=== PATIENT | female | born 1970 | race Caucasian/White ===

== ENCOUNTER → 2016-11-24 | Outpatient (CLI) | payer OTHER ==
--- NOTE | 2016-12-04 11:11 | MM ---
Reason for exam: screening (asymptomatic). Last mammogram was performed 7 years and 9 months ago. History: Patient has history of other cancer at age 44. Physical Findings: A clinical breast exam by your physician is recommended on an annual basis and results should be correlated with mammographic findings. MG Screening Mammo w CAD Bilateral CC and MLO view(s) were taken. Prior study comparison: March 04, 2009, mammogram, performed at [facility]. The breast tissue is heterogeneously dense. This may lower the sensitivity of mammography. Focal asymmetry central upper left breast. This finding is changed when compared with previous exams. ASSESSMENT: Incomplete: need additional imaging evaluation, BI-RAD 0 RECOMMENDATION: Special view mammogram of the left breast. [facility] will attempt to contact patient to return for supplemental views.
== END | disposition home or self-care (01) ==
LOC: RADMAMWWP 13:03
PROVIDERS: ATTEND Family Medicine
DX: Z12.31 Encounter for screening mammogram for malignant neoplasm of breast (principal)

== ENCOUNTER → 2016-12-22 | Outpatient (CLI) | payer OTHER ==
--- NOTE | 2016-12-25 09:45 | MM ---
Reason for exam: additional evaluation requested from abnormal screening. Last mammogram was performed 1 month ago. History: Patient has history of other cancer at age 44. Physical Findings: Nurse did not find any significant physical abnormalities on exam. MG Work Up Mamm w CAD LT CC, MLO, ML, spot compression CC, and spot compression MLO view(s) were taken of the left breast. Prior study comparison: November 24, 2016, bilateral MG screening mammo w CAD. March 04, 2009, mammogram, performed at [facility]. The breast tissue is heterogeneously dense. This may lower the sensitivity of mammography. There is no discrete abnormality. The questioned asymmetric densities disperse on additional views. These results were verbally communicated with the patient and result sheet given to the patient on 12/22/16. ASSESSMENT: Negative, BI-RAD 1 RECOMMENDATION: Routine screening mammogram of both breasts in 1 year.
== END ==
LOC: RADMAMWWP 15:04
PROVIDERS: ATTEND Family Medicine
DX: R92.8 Other abnormal and inconclusive findings on diagnostic imaging of breast (principal)

== ENCOUNTER → 2017-01-01 | Outpatient (CLI) | payer OTHER ==
--- NOTE | 2017-01-01 16:25 | MR ---
MR lspine/sacrum wo con CLINICAL HISTORY: Low back pain. Multiplanar, multiecho imaging of the lumbar spine and sacrum was obtained without contrast on a 3 Te sla magnet. REFERENCE:None. FINDINGS: Paraspinal soft tissues are normal. Vertebral body height and alignment are maintained. There is no spondylolysis or spondylolisthesis. Cord signal is normal. The conus ends normally at the level of the mid body of L1. At T12-L1 and L1-2, no definite abnormality is seen. At L2-3, there is minor capsulitis within the facets. At L3-4, there is mild hypertrophic change and capsulitis within the facets. At L4-5, there is disc space loss and disc desiccation. There is a diffuse disc displacement. The int ervertebral foramina appear well maintained. There are hypertrophic changes and capsulitis within the facets. At L5-S1, there is mild hypertrophic changes in the facets. There is a mild kyphosis at the S1-2 level. The remainder of the sacral elements and the first 2 cocc ygeal segments are fused. Uterus is mildly heterogenous and retroflexed. The bladder is unremarkable. IMPRESSION: 1. MILD DEGENERATIVE DISC DISEASE, L4-5. 2. DIFFUSE FACET ARTHROPATHY. 3. 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 4. MILD KYPHOSIS AT THE S1-S2 LEVEL.
== END | disposition home or self-care (01) ==
LOC: RADMRIMAIN 15:11
PROVIDERS: ATTEND Nurse Practitioner Family
DX: M51.36 Other intervertebral disc degeneration, lumbar region (principal); M46.96 Unspecified inflammatory spondylopathy, lumbar region; Q74.2 Other congenital malformations of lower limb(s), including pelvic girdle
CPT/HCPCS: 72148; 72195

== ENCOUNTER → 2017-09-06 | Outpatient (CLI) | payer OTHER ==
[2017-09-05 23:08] VITALS: BMI 20.2
--- NOTE | 2017-09-06 14:21 | P.CONS ---
History of Present Illness - Reason for Consult Consult date: 09/06/17 - History of Present Illness This is the initial consultation visit for this 46 years female with a chronic history of severe low back pain, the pain started more than 4 years ago , she denies any initiating event , but she reportes ,that she heavy lifting at work , constant and increases with any activity localized mostly in the low back area , fever or night sweats she denies any motor or sensory deficit, Past Medical History Past Medical History: Cancer, Musculoskeletal Disorder Additional Past Medical History / Comment(s): hx. skin cancer, back pain, back injury last spring History of Any Multi-Drug Resistant Organisms: None Reported Past Surgical History: Tonsillectomy Additional Past Surgical History / Comment(s): repair rectal prolapse, skin cancer removed face, colonoscopies Past Anesthesia/Blood Transfusion Reactions: No Reported Reaction Past Psychological History: ADD/ADHD, Anxiety Smoking Status: Current every day smoker Past Alcohol Use History: Occasional Additional Past Alcohol Use History / Comment(s): on & off 1ppd since teens Past Drug Use History: None Reported - Past Family History Father Family Medical History: Cancer Medications and Allergies Home Medications Medication Instructions Recorded Confirmed Type Dextroamphetamine/Amphetamine 15 mg PO BID 09/04/17 09/06/17 History [Adderall] Ibuprofen [Motrin] 600 mg PO Q6HR PRN 09/04/17 09/06/17 History QUEtiapine [SEROquel] 100 mg PO HS 09/04/17 09/06/17 History Venlafaxine HCl ER [Effexor Xr] 75 mg PO BID 09/04/17 09/06/17 History Allergies Allergy/AdvReac Type Severity Reaction Status Date / Time No Known Allergies Allergy Verified 09/06/17 13:35 Physical Exam Vitals: Vital Signs Temp Pulse Resp BP Pulse Ox 09/06/17 13:43 97.6 F 102 H 18 132/77 97 Intake and Output 09/05/17 09/06/17 09/06/17 22:59 06:59 14:59 Other: Weight 62.1 kg Patient Weight 09/07/17 06:59 Weight 62.1 kg Social history : smoker , occasional ETOH , occasional marijuana use Review of Systems : 1- Constitutional : no chills , no fever , no night sweats , 2- Ears : no ear discharge , no change in hearing 3-Nose, Mouth ,Throat ; no bleeding gums, no sore throat , no epistaxis , 4-Cardiovascular : Denies chest pain, , no orthopnea , no palpitation 5-Respiratory : Denies cough , no dyspnea , no hemoptysis 6-Gastrointestinal :, no change in bowel habits , no coffee- ground emesis . 7-Genitourinary : No hematuria , no discharge , no incontinence, 8-Musculoskeletal : No gait dysfunction , report low back pain , 9- Neurological : no ataxia , no tremor , no sezure , 10-Psychatric , no suicidal ideation no hallucination , ++ anexity 11- Endocrine : no cold intolerence , no polyuria , no polydypsia , 12-Hematologic : no easy bleeding , no easy brusing , 13-Allergic / immunology : no angioedema , no wheezing ,no allergic rhinitis 14-Integumentary : no brttle nails , no change hair / nails , no foot/leg ulcers . Physical Examinations : 1-Constitutional : Cooperative , not in acute distress . 2-HEENT : nech ; supple , no Lymphadenopathy , no Thyromegaly , :eyes , no icterus, no photophobia . ENT : , normal oropharynx , no Thrush 3- Respiratory : Chest clear to auscultations Bilaterally , no wheezing . 4- Cardiovascular : regular rate and rhythem , S1 , S2 , no S3 , no S4. 5- Gastrointestinal: abdomen soft no tenderness , no organomegally . 6- Genitourinary : Defferred . 7-Integumentary : No cellulitis , no ulcers , normal skin turgor , no cyanotic . 8- neurologic : Cranial nerve II to XII intact , no focal neurological deffecit 9-psychatric : alert , oriented X 3 , appropriate affect , intact judgment and insight . 10-Lymphatic : no Lymphadenopathy. 11- musculoskeltal: normal gait . Lumber spine moter stegnth lower extremities ,thigh and legs 5/5 Right side , 5/5 Left side deep tendon reflexes : normal Knee Jerk , normal ankle Jerk positive lumber facet Loading Test Range of motion of the lumbar spine Flexion 30 degrees, extension 10 degrees strait leg raising test , positive at 60 degree Fabere test negative RT and negative LT . Results Comments: Lumbar spine done at the [facility] February 2017 showed multilevel lumbar degenerative disc disease and multilevel lumbar facet arthropathy and capsulitis of the facet joint Assessment and Plan Plan: Assessment and plan= chronic low back pain secondary to lumbar degenerative disc disease , lumbar spondylosis with lumbar facet arthropathy , Medication managements= patient will be given prescriptio for 100 mg twice a day dispense 60 with 1, to review her current medication and she Motrin 600 mg 3 times a day Interventional pain management= clinically most of the pain is coming from the facetogenic component , for this reason ,patient could benefit from diagnostic medial branch block and radiofrequency ablation of the medial branch if it's positive, and benefits and alternatives discussed with the patient and she agreed with the preceding, if she had no benefit from the diagnostic medial branch block and we will do lumbar epidural steroid injections to target the discogenic component of low back pain , Time with Patient: Greater than 30
[2017-09-06 16:40] VITALS: BP 132/77; PULSE 102; RESP 18; TEMP 97.6
== END | disposition home or self-care (01) ==
LOC: PNWHC3 13:15
PROVIDERS: ATTEND Specialist
DX: M51.36 Other intervertebral disc degeneration, lumbar region (principal); M47.816 Spondylosis without myelopathy or radiculopathy, lumbar region; M46.86 Other specified inflammatory spondylopathies, lumbar region; Z79.1 Long term (current) use of non-steroidal anti-inflammatories (NSAID); Z79.899 Other long term (current) drug therapy
CPT/HCPCS: 99201

== ENCOUNTER → 2017-10-09 | Day surgery (SDC) | payer OTHER ==
[2017-10-08 09:24] VITALS: BMI 20.6
[~2017-10-09] MED LIST: LACTATED RINGERS 1,000 ML IV SCH; LIDOCAINE 1% 20 ML VIAL (10MG/ML) FOR IV START INTRADERMA ONE
[2017-10-09 09:28] VITALS: TEMP 98.3
--- NOTE | 2017-10-09 10:36 | P.PCN ---
Date of Procedure: 10/09/17 Surgeon: Ortiz Sheriff Pathology: none sent Condition: stable Disposition: PACU Description of Procedure: PREOPERATIVE DIAGNOSIS : 1- Lumbar spondylosis with Facet Arthropathy without myelopathy . 2- Lumber degenerative disc disease POSTOPERATIVE DIAGNOSIS: 1- Lumbar spondylosis with Facet Arthropathy without myelopathy . 2- Lumber degenerative disc disease PROCEDURE: Diagnostic bilateral L3 -4 , L4 -5 , and L5-S1 medial branch block under fluoroscopy ANESTHESIA: Local with 1% lidocaine; IV moderate conscious sedation with Versed 2 mg, and fentanyl 100 g . EBL: Negligible COMPLICATION: None. PROCEDURE INDICATION: Chronic low back pain secondary to Facet arthropathy unresponsive to conservative treatment. PROCEDURE DESCRIPTION: the patient was seen and identified in the preop holding area , risks and benefits and possible complications of the procedure and alternatives were discussed with the patient, and the patient agreed to proceed with the procedure and signed the consent. IV was started and vital signs monitored during the procedure and fluoroscopy was used to maximize the benefit and accuracy of the needle placement, sedation was given to decrease patient anxiety, patient was taken to the procedure room and placed in prone position vital signs monitored. The patient was seen in the preop holding area consent was obtained then she was brought into the procedure room and placed in prone position. Skin was prepped with Chloraprep and draped in a sterile manner. Lidocaine 1% was used to numb the skin up at the target points that were chosen as follows: at the L5-S1 level which corresponds to the dorsal ramus of L5 the target points were at the superior medial aspect of the sacral ala on each side of the spine on the AP view of fluoroscopy, and for theL2, L3 and L4 medial branches the target points were the connection between the transverse process and the superior to go process of L3, L4 and L5 respectively on the oblique views of fluoroscopy. I used 22-gauge 3-1/2 inch Quincke spinal needles for this procedure and after contacting bone at the target points mentioned above I injected 1 mL of a mixture of Kenalog 40 mg +5 MLS of Marcaine 0.5% PF . Patient tolerated procedure well. At the end of the procedure the needles removed and a bandage applied after the skin was cleaned the cleaning solution. patient was then taken to the recovery room in stable condition and monitored in the recovery room for 20-30 minutes and discharged home in stable condition after discharge criteria met .
[2017-10-09 10:51] VITALS: BP 102/67; PULSE 72; RESP 18
--- NOTE | 2017-10-09 11:12 | FL ---
EXAMINATION TYPE: FL guided pain mgmt statistic DATE OF EXAM: 10/09/2017 HISTORY: Pain bilateral facets 12 sec fl time used 2 images scanned into pacs
== END ==
LOC: ORPAIN 09:04
PROVIDERS: ATTEND Anesthesiology
DX: G89.29 Other chronic pain (principal); M47.816 Spondylosis without myelopathy or radiculopathy, lumbar region; M51.36 Other intervertebral disc degeneration, lumbar region
CPT/HCPCS: 81025; 64493; 64494; 64495; J2250; J3301; J3010; 99152

== ENCOUNTER 2017-12-19 08:30 | Day surgery (SDC) | payer OTHER ==
[2017-12-19 08:55] VITALS: TEMP 98.5
[2017-12-19] MEDS ORDERED: LACTATED RINGERS 1,000 ML IV ONE (09:00)
[2017-12-19] MEDS ORDERED: LACTATED RINGERS 1,000 ML IV SCH (09:30)
[2017-12-19] MEDS ORDERED: IV FLUID CONTINUATION 1,000 ML IV ONE (09:50)
[2017-12-19 09:53] VITALS: RESP 18
[2017-12-19 10:06] VITALS: BP 101/72; PULSE 85
--- NOTE | 2017-12-19 10:08 | P.PCN ---
Date of Procedure: 12/19/17 Surgeon: Douglas Kaminski Pathology: none sent Condition: stable Disposition: PACU Description of Procedure: PREOPERATIVE DIAGNOSIS: Lumbar spondylosis without myelopathy and facet arthropathy. POSTOPERATIVE DIAGNOSIS: Lumbar spondylosis without myelopathy and facet arthropathy. PROCEDURE DESCRIPTION: Patient presents for bilateral L3-L4, L4-L5 and L5-S1 diagnostic medial branch blocks under fluoroscopic guidance. The procedure is performed using fluoroscopic guidance during needle placement to assure proper position and maximize safety. ANESTHESIA: Local with 1% lidocaine; conscious sedation EBL: Minimal PROCEDURE INDICATION: Patient with lumbar facet arthropathy signs and symptoms, here for diagnostic medial branch block. Pt does not take any blood thinning medications. PROCEDURE DESCRIPTION: The patient was seen and identified in the preoperative area. Risks, benefits, complications, and alternatives were discussed with the patient (including but not limited to incomplete pain relief, bleeding, infection, nerve damage, and allergies to medications), the patient agreed to proceed with the procedure and signed the consent after all questions were answered. Patient was taken to the OR and time out was completed to verify proper patient, position, laterality of pain, and allergies. Pt was placed in the prone position and a pillow was placed under the abdomen to reduce lumbar lordosis. The lumbosacral area was prepped and draped in the usual sterile fashion. Using oblique fluoroscopy, the eye of the "Gallo dog" of right L4 vertebral body, which corresponds to the path of the medial branch originating from the level above, which is L3 in this case, was identified. Subsequently, a 22-gauge 3.5-inch spinal needle was inserted under fluoroscopic guidance toward the eye of the "Gallo dog" of the right L4 vertebral body, corresponding to the junction of the superior articular process and the transverse process of the pedicle of the same level. After needle tip confirmation on lateral view and after negative aspiration for CSF and blood and without paresthesias, 1 mL of a 6 ml solution of 0.5% preservative-free bupivacaine and 40 mg Kenalog was injected. Subsequently the needle was withdrawn intact and the same procedure was repeated for the right L4, right L5, left L3, left L4, and left L5 medial branches which together with right L3 medial branch correspond to the sensory innervation of the bilateral L3-L4, L4-L5, and L5-S1 facet joints. Needle was withdrawn intact after each injection. At the end of the procedure, the skin was cleansed and bandages were applied. COMPLICATIONS: None. DISPOSITION/PLAN: The patient taken to the recovery area after the procedure in a stable condition for observation. Patient was reexamined prior to discharge and there were no issues. Patient was discharged home, accompanied by an adult, after meeting discharged criteria. Discharge instructions were give to the patient by the staff. Patient was specifically instructed not to drive today and to rest for the rest of the day. Patient will follow up in clinic for re-eval in 4-6 weeks.
--- NOTE | 2017-12-19 10:12 | FL ---
Fluoroscopy HISTORY: Pain 10 seconds fluoroscopy time supplied to the referring clinician. 6 intraoperative C-arm images docum ent the procedure. See dictated report from anesthesia.
== END 2017-12-19 10:25 | disposition home or self-care (01) ==
LOC: ORPAIN 08:30
PROVIDERS: ATTEND Anesthesiology
DX: M47.816 Spondylosis without myelopathy or radiculopathy, lumbar region (principal); F41.9 Anxiety disorder, unspecified; F32.9 Major depressive disorder, single episode, unspecified; Z79.1 Long term (current) use of non-steroidal anti-inflammatories (NSAID); Z79.899 Other long term (current) drug therapy
CPT/HCPCS: 81025; 64493; 64494; 64495; J2250; J3301; 99152

== ENCOUNTER → 2018-01-08 | Outpatient (CLI) | payer OTHER ==
[2018-01-08 13:34] VITALS: BP 120/85; PULSE 90; RESP 18
--- NOTE | 2018-01-08 13:47 | P.PN ---
Progress Note - Text Progress Note Date: 01/08/18 Patient returns for followup for chronic back pain without significant radiation. Patient recently underwent LMBB x2, first of which gave her three weeks' relief > 70% and the second of which only gave her one week's relief > 70 % and improvement in her ability to do ADLs. Patient did also complain of some numbness in her left pinky after first procedure which has steadily improved and may have been due to positioning. Patient denies adverse drug effects from medications. Today, pt denies new-onset weakness, bowel/bladder incontinence, or any other signs or symptoms of cauda equina syndrome. There are no signs of acute intoxication, and no indications of medication diversion or overuse. In addition to above, 13-point review of systems is also negative for chest pain , shortness of breath, changes in vision, changes in hearing, new onset weakness , abdominal pain, diarrhea, extreme fatigue, malaise, fever, skin changes, homicidal or suicidal ideation, or bowel or bladder incontinence. Vital Signs: Reviewed in EMR Gen: WDWN, AAOx3, NAD HEENT: NCAT, EOMI, hearing grossly normal Pulm: resp unlabored Abd: soft, NT, ND Neck: supple, trachea midline ROM in flexion lumbar spine: reduced ROM in extension lumbar spine: reduced Lumbar paravertebral tenderness: + Facet loading: + bilateral, R > L SI joint tenderness: neg Henry's test: neg Straight leg raise: neg Imaging: Reviewed in EMR Assessment: 1. lumbar spondylosis 2. chronic pain syndrome Plan: 1. Explanation: Opioid and psychological risk scores were reviewed. Diagnoses , prognoses, and multiple treatment options including but not limited to physical therapy, interventional therapies, adjuvant medical therapies, narcotic medication therapies, and surgery were discussed with the patient and all questions were answered to the patient's satisfaction. 2. Opioid agreement: no opioids prescribed today 3. Counseling: The patient was counseled extensively on SMOKING CESSATION, BODY MASS INDEX, EXERCISE. Specifically, the patient was instructed regarding the importance of smoking cessation, weight control, and exercise in the context of both chronic pain and overall health. 4. Procedures: R lumbar RFA 5. Consultations: None 6. Investigations: UDS not done today, MAPS queried and appropriate 7. Medications: none prescribed 8. Morphine equivalents per day prescribed: zero 9. Disposition: f/u for procedure as scheduled PQRS measures: 1-Patient's medications are documented in the chart. 2-Tobacco use is positive, counseling given 3-Patient has not had a pneumococcal vaccine. 4-Advanced care planning discussed, patient unable to give. 5-Opioid contract NOT signed with the patient. 6-Pain positive, follow-up visit or procedure scheduled 7-Patient's blood pressure measured and documented, and WNL. 8-Patient's weight was measured, and body mass index within the normal limits. 9-Patient WAS NOT identified as an unhealthy alcohol user.
== END | disposition home or self-care (01) ==
LOC: PNWHC3 13:02
PROVIDERS: ATTEND Anesthesiology
DX: G89.4 Chronic pain syndrome (principal); M47.816 Spondylosis without myelopathy or radiculopathy, lumbar region; Z72.0 Tobacco use
CPT/HCPCS: 99211

== ENCOUNTER 2018-02-05 09:14 | Day surgery (SDC) | payer OTHER ==
[2018-02-04 09:28] VITALS: BMI 21.2
[2018-02-05] MEDS ORDERED: LACTATED RINGERS 1,000 ML IV ONE (10:25)
[2018-02-05] MEDS ORDERED: LIDOCAINE 1% 20 ML VIAL (10MG/ML) FOR IV START INTRADERMA ONE (10:25)
[2018-02-05 10:28] VITALS: RESP 16; TEMP 98.6
[2018-02-05] MEDS ORDERED: IV FLUID CONTINUATION 1,000 ML IV ONE (11:00)
[2018-02-05 11:18] VITALS: BP 119/78; PULSE 71
--- NOTE | 2018-02-05 11:51 | FL ---
Fluoroscopy HISTORY: Pain 12 seconds fluoroscopy time supplied to the referring clinician. 3 intraoperative C-arm images docum ent the procedure. See dictated report from anesthesia.
--- NOTE | 2018-02-05 11:54 | P.PCN ---
Date of Procedure: 02/05/18 Surgeon: Douglas Kaminski Pathology: none sent Condition: stable Disposition: PACU Description of Procedure: PREOPERATIVE DIAGNOSIS: Lumbar spondylosis without myelopathy and facet arthropathy POSTOPERATIVE DIAGNOSIS: Lumbar spondylosis without myelopathy and facet arthropathy PROCEDURES: Right Radiofrequency thermocoagulation, L3-L4, L4-L5, and L5-S1 medial branch, with fluoroscopic guidance. ANESTHESIA: 1% lidocaine plain; Conscious sedation with versed/fentanyl EBL: Minimal PROCEDURE INDICATION: The patient with low back pain secondary to lumbar arthropathy who had more than 50% relief of pain with previous diagnostic lumbar medial branch block with bupivacaine. Patient presents for RFA today; no use of blood thinners. PROCEDURE DESCRIPTION / TECHNIQUE: The patient was seen and identified in the preoperative area. Risks, benefits, complications, and alternatives were discussed with the patient (including but not limited to incomplete pain relief , bleeding, infection, nerve damage, and allergies to medications), the patient agreed to proceed with the procedure and signed the consent after all questions were answered. Patient was taken to the OR and time out was completed to verify proper patient , position, laterality of pain, and allergies. Pt was placed in the prone position. IV was started. Vital signs remained stable throughout the procedure. A pillow was placed under the patients chest to decrease lordosis. The lumbosacral area was prepped and draped in the usual sterile fashion. Vital signs were closely monitored during the procedure. Conscious sedation was used during the procedure to decrease patients anxiety. Using AP and then oblique fluoroscopy, the eye of the Gallo dog corresponding to the connection between the superior and transverse articular processes of right L3, L4, L5 and top of the sacrum were identified, marked, and localized with 1% lidocaine. Subsequently, a 20 gauge, 100-mm radiofrequency cannula with a 10-mm active tip was advanced guided by fluoroscopy to each of the eyes of the Gallo dog at the levels of all four medial branches. Each site then underwent sensory testing at 50 Hz and 0 to 1 volt and motor testing at 2 Hz and 0 to 3 volt with local stimulation, but no radicular symptoms down the legs. Thereafter all four medial branch sites underwent radiofrequency thermocoagulation at 80 degrees Celsius for 90 seconds after injecting 0.5 ml of PF lidocaine 1%. After thermocoagulation, 1 ml of the block solution containing Kenalog 40 mg and 2 mL of preservative-free normal saline was injected at all four medial branch levels after negative aspiration of CSF and blood and with no paresthesias. Cannulas were retracted while injecting lidocaine 1% until the needles were removed. At the end of the procedure, the skin was cleansed and bandages were applied. COMPLICATIONS: No acute complications. DISPOSITION / PLANS: The patient was placed in a supine position and transferred to the recovery area in a stable condition for observation and was discharged from the recovery room after meeting discharge criteria. Home discharge instructions given to the patient by the staff. The patient was reexamined prior to discharge. The patient will schedule a left lumbar RFA in 2- 4 weeks.
== END 2018-02-05 11:41 | disposition home or self-care (01) ==
LOC: ORPAIN 09:14
PROVIDERS: ATTEND Anesthesiology
DX: G89.4 Chronic pain syndrome (principal); M47.816 Spondylosis without myelopathy or radiculopathy, lumbar region; Z72.0 Tobacco use
CPT/HCPCS: 81025; 64635; 64636 ×2; J2250; J3301; J3010; 99152

== ENCOUNTER 2018-02-26 09:26 | Day surgery (SDC) | payer OTHER ==
[2018-02-25 11:49] VITALS: BMI 20.9
[~2018-02-26 09:26] MED LIST changes: -LIDOCAINE 1% 20 ML VIAL (10MG/ML) FOR IV START INTRADERMA ONE
[2018-02-26 10:17] VITALS: RESP 16; TEMP 98.9
[2018-02-26] MEDS ORDERED: LIDOCAINE 1% 20 ML VIAL (10MG/ML) FOR IV START INTRADERMA ONE (10:32)
--- NOTE | 2018-02-26 11:12 | P.PCN ---
Date of Procedure: 02/26/18 Procedure(s) Performed: PREOPERATIVE DIAGNOSIS: 1-Lumbar Spondylosis with Facet Arthropathy without myelopathy. POSTOPERATIVE DIAGNOSIS: 1- Lumbar Spondylosis with Facet Arthropathy without myelopathy. PROCEDURES : Left Radiofrequency thermocoagulation, L3-L4, L4-L5, and L5-S1 medial branch, with fluoroscopic guidance ANESTHESIA: Moderate sedation with intravenous versed 2 mg, and fentaneyl 100 mcg and local infiltration with lidocaine 1% 6 ml EBL: Minimal PROCEDURE INDICATION: The patient with low back pain secondary to lumbar facet arthropathy who had more than 50% relief of her pain with previous diagnostic lumbar medial branch block with bupivacaine. PROCEDURE DESCRIPTION / TECHNIQUE: The patient was seen and identified in the preoperative area. Risks, benefits, complications, including but not limited to risk of infection ,bleeding , allergic reactions to the medications and no complete pain releife , and alternatives were discussed with the patient, the patient agreed to proceed with the procedure and signed the consent. IV was started. Vital signs remained stable throughout the procedure. Patient was taken to the OR and time out was completed. The patient was placed in the prone position on the procedure table. The lumber area was prepped and draped in the usual sterile fashion. . Vital signs were closely monitored during the procedure .IV sedation was used during the procedure to decrease patients anxiety. Using AP and then oblique fluoroscopy, the ``eye of the Gallo dog corresponding to the connection between the superior and transverse articular processes of left L3, L4, and L5 were identified, marked, and localized with 1 % lidocaine. Subsequently, a 18 [id number] radiofrequency cannula with a 10- mm active tip was advanced guided by fluoroscopy to each of the ``eyes of the Gallo dog at left L3, L4, and L5. Each site then underwent sensory testing at 50 Hz and 0 to 1 volt and motor testing at 2.5 Hz and 0 to 3 volt with local stimulation, but no radicular symptoms down the legs. Thereafter the left L3-4, L4-5, and L5-S1 sites underwent radiofrequency thermocoagulation at 80 degrees celsius for 90 seconds after injecting 0.5 ml of PF lidocaine 1%. then After the thermocoagulation done , 1 ml of the block solution containing Kenalog 40 mg and 3 ml of marcain 0.5% was injected at the left L3-4 , L4-5 , and L5-S1, levels after negative aspiration of CSF and blood and with no paresthesias. Cannulas were retracted while injecting lidocaine 1% until the needle is out. . At the end of the procedure, the skin was cleansed and bandages were applied. COMPLICATIONS: No acute complications. DISPOSITION / PLANS: The patient was placed in a supine position and transferred to the recovery area in a stable condition for observation and was discharged from the recovery room after meeting discharge criteria. Home discharge instructions given to the patient by the staff. The patient was reexamined prior to discharge. The patient will schedule a follow up in the clinic in 2-4 weeks.
--- NOTE | 2018-02-26 11:18 | FL ---
EXAMINATION TYPE: FL guided pain mgmt statistic DATE OF EXAM: 02/26/2018 HISTORY: Pain Rad freq FB lumbar. Al-Anthony. 6 seconds of fluoro. 3 images scanned.
[2018-02-26] MEDS ORDERED: IV FLUID CONTINUATION 500 ML IV ONE (11:20)
[2018-02-26 11:25] VITALS: PULSE 74
[2018-02-26 11:44] VITALS: BP 121/76
== END 2018-02-26 11:53 | disposition home or self-care (01) ==
LOC: ORPAIN 09:26
PROVIDERS: ATTEND Specialist
DX: M47.816 Spondylosis without myelopathy or radiculopathy, lumbar region (principal); F90.9 Attention-deficit hyperactivity disorder, unspecified type; F17.200 Nicotine dependence, unspecified, uncomplicated
CPT/HCPCS: 81025; 64635; 64636; J2250; J3301; J3010; 99152

== ENCOUNTER → 2018-10-28 | Outpatient (CLI) | payer BC ==
--- NOTE | 2018-10-28 22:31 | XR ---
EXAMINATION TYPE: XR cervical spine limited DATE OF EXAM: 10/28/2018 TECHNIQUE: Frontal, lateral, and open mouth view of the cervical spine are obtained. HISTORY: M54.2 cervicalgia COMPARISON: None FINDINGS: The cervical spine is visualized in its entirety from C1 thru the inferior C7 level, it is straightened in alignment without evidence of acute fracture or dislocation. The pre-vertebral soft tissue appears within normal limits. The C1-C2 articulation is within normal limits on the open rachelle th view. There is suboptimal evaluation of C7-T1 level without dedicated swimmer's view. Mild disc sp renetta narrowing C6-C7 level is present otherwise vertebral body heights and disc space heights are main tained. Overlying soft tissue is unremarkable. IMPRESSION: As above.
--- NOTE | 2018-10-28 22:32 | XR ---
EXAMINATION TYPE: XR lumbar spine 2 or 3V DATE OF EXAM: 10/28/2018 CLINICAL HISTORY: Pain after falling injury one week ago. TECHNIQUE: Frontal and lateral images of the lumbar spine are obtained. COMPARISON: None FINDINGS: There are 5 lumbar type vertebral bodies identified. The lumbar spine shows slight levoco nvex scoliotic curvature without evidence of acute fracture or dislocation. Vertebral body heights an d disk space heights are within normal limits. Surgical clips overlie the upper sacrum and lower lumb ar spine. IMPRESSION: No acute fracture or dislocation is seen in the lumbar spine.
== END | disposition home or self-care (01) ==
LOC: RADXRMAIN 15:17
PROVIDERS: ATTEND Physician Assistant
DX: M48.02 Spinal stenosis, cervical region (principal); M54.5 Low back pain
CPT/HCPCS: 72040; 72100

== ENCOUNTER → 2020-03-16 | Outpatient (CLI) | payer OTHER | END | disposition home or self-care (01) | LOC: LABWHC1 13:14 | PROVIDERS: ATTEND Family Medicine | DX: Z11.59 Encounter for screening for other viral diseases (principal) | CPT/HCPCS: U0003; C9803 ==

== ENCOUNTER → 2020-07-16 | Outpatient (CLI) | payer OTHER ==
--- NOTE | 2020-07-16 13:33 | US ---
EXAMINATION TYPE: US pelvic complete DATE OF EXAM: 07/16/2020 COMPARISON: NONE CLINICAL HISTORY: 49-year-old female Z12.39, N94.10. Heavy bleeding. TECHNIQUE: Transvaginal (TV). FINDINGS: EXAM MEASUREMENTS: Uterus: 7.5 x 5.0 x 5.2 cm Endometrial Stripe: .9 cm Right Ovary: 3.1 x 2.1 x 2.3 cm Left Ovary: 2.4 x 2.3 x 2.2 cm 1. Uterus: Maybe retroflexed but otherwise wnl 2. Endometrium: wnl 3. Right Ovary: Cystic area seen 1.6 x 1.9 x 1.9 cm. 4. Left Ovary: wnl 5. Bilateral Adnexa: wnl 6. Posterior cul-de-sac: wnl IMPRESSION: 1. Retroflexed uterus. Endometrial stripe measuring 9 mm. 2. A 1.9 cm dominant follicle or functional cyst within the right ovary. 3. No pelvic free fluid.
--- NOTE | 2020-07-19 08:52 | MM ---
Reason for exam: screening (asymptomatic). Last mammogram was performed 3 years and 7 months ago. History: Patient has history of other cancer at age 44. Physical Findings: A clinical breast exam by your physician is recommended on an annual basis and results should be correlated with mammographic findings. MG Screening Mammo w CAD Bilateral CC and MLO view(s) were taken. Prior study comparison: December 22, 2016, left breast MG work up mamm w CAD LT. November 24, 2016, bilateral MG screening mammo w CAD. The breast tissue is heterogeneously dense. This may lower the sensitivity of mammography. Finding: There are 12 mm equal density (isodense) masses in both breasts. ASSESSMENT: Incomplete: need additional imaging evaluation, BI-RAD 0 RECOMMENDATION: Special view mammogram of both breasts. If lesion persists on supplemental views, image directed ultrasound is recommended. [facility] will attempt to contact patient to return for supplemental views and ultrasound if indicated.
== END | disposition home or self-care (01) ==
LOC: RADUSWWP 12:48
PROVIDERS: ATTEND Family Medicine
DX: Z12.31 Encounter for screening mammogram for malignant neoplasm of breast (principal); N85.4 Malposition of uterus
CPT/HCPCS: 76830; 77067

== ENCOUNTER → 2020-08-04 | Outpatient (CLI) | payer OTHER ==
--- NOTE | 2020-08-04 11:45 | MM ---
Reason for exam: additional evaluation requested from abnormal screening. Last mammogram was performed 1 month ago. History: Patient has history of other cancer at age 44. Physical Findings: Nurse did not find any significant physical abnormalities on exam. MG Work Up Mamm w CAD BILAT Bilateral spot compression CC, spot compression MLO, and LM view(s) were taken. Prior study comparison: July 16, 2020, bilateral MG screening mammo w CAD. December 22, 2016, left breast MG work up mamm w CAD LT. There are scattered fibroglandular densities. No significant changes when compared with prior studies. ASSESSMENT: Negative, BI-RAD 1 RECOMMENDATION: Return to routine screening mammogram schedule for both breasts.
== END | disposition home or self-care (01) ==
LOC: RADMAMWWP 10:16
PROVIDERS: ATTEND Family Medicine
DX: R92.8 Other abnormal and inconclusive findings on diagnostic imaging of breast (principal)
CPT/HCPCS: 77066

== ENCOUNTER 2022-08-28 23:13 | Observation (INO) | payer OTHER ==
--- NOTE | 2022-08-28 23:41 | ED ---
General Adult HPI - General Source: police Mode of arrival: ambulatory <Eusebio Cloud - Last Filed: 08/29/22 00:19> <Chivo Mcdermott - Last Filed: 08/29/22 06:08> - General Chief complaint: Psychiatric Symptoms Stated complaint: Mental Health Time Seen by Provider: 08/28/22 23:17 - History of Present Illness Initial comments: Dictation was produced using [employer] dictation software. please excuse any grammatical, word or spelling errors. Chief Complaint: 51-year-old female presents to the emergency department for er ratic, psychotic behavior History of Present Illness: Patient is a 51-year-old female she denies any significant past medical history. Patient has been brought by law enforcement. Patient actually called law enforcement P she had several alcoholic beverages today. Apparently patient was with a gun and was showing signs of perhaps homicidal or suicidal behavior. Patient denies that she is homicidal or suicidal however she was seen with a gun and having delusional thoughts. Patient has any psychiatric history. She does report having history of uterine prolapse. She denies any current medical complaints The ROS documented in this emergency department record has been reviewed and confirmed by me. Those systems with pertinent positive or negative responses have been documented in the HPI. All other systems are other negative and/or noncontributory. PHYSICAL EXAM: General Impression: Alert and oriented x3, not in acute distress HEENT: Normocephalic atraumatic, extra-ocular movements intact, pupils equal and reactive to light bilaterally, mucous membranes moist. Cardiovascular: Heart regular rate and rhythm Chest: Able to complete full sentences, no retractions, no tachypnea Musculoskeletal: Pulses present and equal in all extremities, no peripheral edema Motor: no focal deficits noted Neurological: CN II-XII grossly intact, no focal motor or sensory deficits noted Skin: Intact with no visualized rashes Psych: Tangential speech ED course: 51-year-old female presents emergency department for psychiatric evaluation. Vital signs upon arrival are within acceptable limits. Nursing notes and chart review was performed Pending sobriety for EPS evaluation. (Eusebio Cloud) - Related Data Home Medications Medication Instructions Recorded Confirmed Dextroamphetamine/Amphetamine 15 mg PO BID 09/04/17 02/26/18 [Adderall] Ibuprofen [Motrin] 600 mg PO Q6HR PRN 09/04/17 02/26/18 QUEtiapine [SEROquel] 150 mg PO HS 09/04/17 02/26/18 Venlafaxine HCl ER [Effexor Xr] 75 mg PO BID 09/04/17 02/26/18 Allergies Allergy/AdvReac Type Severity Reaction Status Date / Time No Known Allergies Allergy Verified 02/26/18 10:18 Review of Systems ROS Other: All systems not noted in ROS Statement are negative. <Eusebio Cloud - Last Filed: 08/29/22 00:19> ROS Other: All systems not noted in ROS Statement are negative. <Chivo Mcdermott - Last Filed: 08/29/22 06:08> ROS Statement: Those systems with pertinent positive or pertinent negative responses have been documented in the HPI. Past Medical History Past Medical History: Cancer, Musculoskeletal Disorder Additional Past Medical History / Comment(s): hx. skin cancer, back pain, back injury last spring History of Any Multi-Drug Resistant Organisms: None Reported Past Surgical History: Tonsillectomy Additional Past Surgical History / Comment(s): repair rectal prolapse, skin cancer removed face, colonoscopies Past Anesthesia/Blood Transfusion Reactions: No Reported Reaction Additional Past Anesthesia/Blood Transfusion Reaction / Comment(s): adopted-no family hx Past Psychological History: ADD/ADHD Past Alcohol Use History: Occasional Additional Past Alcohol Use History / Comment(s): on & off 1ppd since teens Past Drug Use History: None Reported - Past Family History Father Family Medical History: Cancer <Eusebio Cloud - Last Filed: 08/29/22 00:19> Course Vital Signs 08/28/22 08/29/22 08/29/22 23:15 03:22 05:03 Temperature 98.4 F Pulse Rate 110 H 89 Respiratory 16 14 16 Rate Blood Pressure 137/88 129/87 O2 Sat by Pulse 98 99 Oximetry Medical Decision Making <Chivo Mcdermott - Last Filed: 08/29/22 06:08> - Medical Decision Making The patient was initially seen and evaluated by Dr. Cloud. I assumed care of the patient pending sobriety and EPS evaluation. The patient was seen and evaluated by EPS and did recommend inpatient treatment. The patient was certified by myself and laboratory workup was ordered. The patient continued to remain stable and was admitted to the inpatient psychiatric floor in stable condition. (Chivo Mcdermott) Disposition <Eusebio Cloud - Last Filed: 08/29/22 00:19> Time of Disposition: 05:50 Decision to Admit Reason: Admit from EC Decision Date: 08/29/22 Decision Time: 05:50 <Chivo Mcdermott - Last Filed: 08/29/22 06:08> Clinical Impression: Suicidal ideation, Psychosis Disposition: ADMITTED IP TO THIS HOSP Condition: Stable Referrals: Jamari Figueroa DO [Primary Care Provider] - 1-2 days
[2022-08-29] MEDS ORDERED: ALPRAZolam 1 MG TAB PO STA (00:10)
[2022-08-29] MEDS ORDERED: LORazepam 2 MG/ML INJ IM STA (01:32)
[2022-08-29] MEDS ORDERED: LORazepam 1 MG TAB PO PRN (06:15)
[2022-08-29] MEDS ORDERED: ACETAMINOPHEN TAB 325 MG TAB PO PRN (06:15)
[2022-08-29] MEDS ORDERED: MAG HYDROX/AL HYDROX/SIMETH 30 ML CUP PO PRN (06:15)
[2022-08-29] MEDS ORDERED: MAGNESIUM HYDROXIDE 2,400 MG/10 ML CUP PO PRN (06:15)
[2022-08-29] MEDS ORDERED: LORazepam 2 MG/ML INJ IM PRN (06:18)
[2022-08-29] MEDS ORDERED: HALOPERIDOL LACTATE 5 MG/ML 1 ML VIAL IM PRN (06:19)
[2022-08-29 06:36] LABS: Basophils # (A) 0.1 k/uL (0-0.2); Basophils % (A) 2 %; Eosinophils # (A) 0.2 k/uL (0-0.7); Eosinophils % (A) 3 %; HCT 43.1 % (34.0-46.0); HGB 14.1 gm/dL (11.4-16.0); Lymphocytes # (A) 3.4 k/uL (1.0-4.8); Lymphocytes % (A) 43 %; MCH 30.9 pg (25.0-35.0); MCHC 32.6 g/dL (31.0-37.0); MCV 94.8 fL (80.0-100.0); Mean Platelet Volume 7.9; Monocytes # (A) 0.4 k/uL (0-1.0); Monocytes % (A) 4 %; Neutrophils # (A) 3.6 k/uL (1.3-7.7); Neutrophils % (A) 46 %; Platelet Count 326 k/uL (150-450); RBC 4.55 m/uL (3.80-5.40); WBC 7.9 k/uL (3.8-10.6)
[2022-08-29 06:51] LABS: ALT 28 U/L (4-34); AST 43 U/L (14-36); African American GFR (CKD) >90 (>60 ml/min/1.73 sqM); Albumin 4.6 g/dL (3.5-5.0); Alkaline Phosphatase 77 U/L (38-126); Anion Gap 8 mmol/L; Blood Urea Nitrogen 14 mg/dL (7-17); Calcium 8.9 mg/dL (8.4-10.2); Carbon Dioxide 23 mmol/L (22-30); Chloride 109 mmol/L (98-107); Glucose 83 mg/dL (74-99); Non-African American GFR(CKD) >90 (>60 ml/min/1.73 sqM); Potassium 4.5 mmol/L (3.5-5.1); Sodium 140 mmol/L (137-145); Total Bilirubin 0.4 mg/dL (0.2-1.3)
[2022-08-29] MEDS: NICOTINE 21MG/24HR PATCH TRANSDERM SCH (06:51)
[2022-08-29 07:19] LABS: Appearance,Urine Clear (Clear); Bilirubin,Urine Negative (Negative); Blood,Urine Negative (Negative); Color,Urine Colorless; Glucose,Urine (UA) Negative (Negative); Ketones,Urine Negative (Negative); Leukocyte Esterase,Urine Negative (Negative); Nitrite,Urine Negative (Negative); Protein,Urine Negative (Negative); Specific Gravity,Urine 1.004 (1.001-1.035); Urobilinogen,Urine <2.0 mg/dL (<2.0)
[2022-08-29 07:32] LABS: Amphetamine Screen,Urine Detected (NotDetected); Barbiturate Screen,Urine Not Detected (NotDetected); Benzodiazepines Screen,Urine Not Detected (NotDetected); Cocaine Screen,Urine Not Detected (NotDetected); Methadone Screen, Urine Not Detected (NotDetected); Opiate Screen,Urine Not Detected (NotDetected); Oxycodone Screen, Urine Not Detected (NotDetected); Phencyclidine Screen,Urine Not Detected (NotDetected); Tricyclic Antidepressant,Urine Not Detected (NotDetected); Urn Cannabinoid Scrn Not Detected (NotDetected)
[2022-08-29] MEDS: haloperidoL 5 MG TAB PO SCH ×3 (12:33→17:28)
[2022-08-29] MEDS: ENOXAPARIN 40 MG/0.4 ML SYRINGE SQ SCH (17:46)
--- NOTE | 2022-08-29 18:18 | XR ---
EXAMINATION TYPE: XR chest 1V portable DATE OF EXAM: 08/29/2022 5:38 PM COMPARISON: None TECHNIQUE: XR chest 1V portable Portable AP radiograph of the chest. CLINICAL INDICATION:Female, 51 years old with history of covid; FINDINGS: Lungs/Pleura: There is flattening of the diaphragm with increased lucency of the lungs. No evidence o f pneumothorax, pleural effusion or focal consolidation. Pulmonary vascularity: Unremarkable. Heart/mediastinum: Cardiomediastinal silhouette is unremarkable. Musculoskeletal: No acute osseous pathology. IMPRESSION: 1. No acute cardiopulmonary disease process. 2. COPD changes.
[2022-08-30] MEDS: haloperidoL 5 MG TAB PO SCH ×3 (00:03→13:52)
[2022-08-30] MEDS: NICOTINE 21MG/24HR PATCH TRANSDERM SCH (00:22)
--- NOTE | 2022-08-30 01:26 | HP ---
HISTORY AND PHYSICAL CHIEF COMPLAINT: Cough and suicidal ideation. HISTORY OF PRESENT ILLNESS: This is a 51-year-old woman with a past medical history of musculoskeletal disorders, being followed by Dr. Jamari Figueroa. The patient was taken by law enforcement to [facility] for suicidal ideations and alcohol intoxication. The patient also had some cough, also COVID-19 positive. There is no history of any fever, rigors, or chills. A chest x-ray is pending at this time. PAST MEDICAL HISTORY: Musculoskeletal disorder, history of cancer, the rest of history and rest of the chart is also reviewed. HOME MEDICATIONS: Effexor XR, doses and rest of medications reviewed. ALLERGIES: None. FAMILY HISTORY: History of cancer in the family. SOCIAL HISTORY: Occasional alcohol according to chart. REVIEW OF SYSTEMS: A 14-point review is negative as mentioned earlier. PHYSICAL EXAMINATION: VITAL SIGNS: Pulse is 88, blood pressure 130/28, respirations 18. HEENT: Conjunctivae normal. NECK: No jugular venous distention. RESPIRATIONS: Clear to auscultation. ABDOMEN: Soft. NERVOUS SYSTEM: No focal deficits. SKIN: No ulcer, rash, or bleeding. JOINTS: No active deforming arthropathy. LABORATORY DATA: CBC noted, BMP and CMP noted. ASSESSMENT: 1. Depression with acute suicidal ideation. 2. Possible ETOH. 3. Acute COVID-19 infection. 4. Degenerative joint disease. 5. Multiple medical issues. RECOMMENDATIONS: This 51-year-old woman presented with multiple complex medical issues, we will monitor the patient closely. Continue current medications as mentioned earlier. Recommended chest x-ray. I would recommend infectious disease evaluation, psychiatric evaluation. The prognosis guarded because of multiple complex medical problems. See orders for details. MMODL / IJN: [id number] /
[2022-08-30] MEDS: ENOXAPARIN 40 MG/0.4 ML SYRINGE SQ SCH (08:32)
[2022-08-30 10:24] LABS: Basophils # (A) 0.05 X 10*3/uL (0.00-0.10); Basophils % (A) 0.9 %; Eosinophils # (A) 0.23 X 10*3/uL (0.04-0.35); HCT 37.6 % (37.2-46.3); HGB 12.5 g/dL (12.0-15.0); Immature Grans, Automated 0.2 %; Lymphocytes # (A) 1.16 X 10*3/uL (0.90-5.00); MCH 30.9 pg (27.0-32.0); MCHC 33.2 g/dL (32.0-37.0); MCV 92.8 fL (80.0-97.0); Mean Platelet Volume 9.8 fL (9.5-12.2); Monocytes # (A) 0.59 X 10*3/uL (0.20-1.00); Monocytes % (A) 10.2 %; NRBC Per 100 WBC 0 /100 WBCS (0.0-0.0); Neutrophils # (A) 3.77 X 10*3/uL (1.80-7.70); Neutrophils % (A) 64.7 %; Platelet Count 256 X 10*3/uL (140-440); RBC 4.05 X 10*6/uL (4.10-5.20); RDW 12.5 % (11.5-14.5); WBC 5.81 X 10*3/uL (4.50-10.00)
[2022-08-30 10:35] LABS: ALT 21 U/L (8-44); AST 27 U/L (13-35); African American GFR (CKD) 117.9 (60.0-200.0); Albumin/Globulin Ratio 1.67 (1.60-3.17); Alkaline Phosphatase 70 U/L (41-126); BUN/Creat Ratio 17.86 Ratio (12.00-20.00); Blood Urea Nitrogen 12.5 mg/dL (9.0-27.0); Carbon Dioxide 22.9 mmol/L (20.0-27.5); Chloride 102 mmol/L (96-109); Globulin 2.4 g/dL (1.6-3.3); Glucose 87 mg/dL (70-110); LDL Cholesterol,Calculated 101.8 mg/dL (0.0-131.0); Non-African American GFR(CKD) 101.7 (60.0-200.0); Potassium 3.9 mmol/L (3.5-5.5); Sodium 136 mmol/L (135-145); Total Protein 6.4 g/dL (6.2-8.2)
--- NOTE | 2022-08-30 12:54 | PN ---
PROGRESS NOTE DATE OF SERVICE: 08/30/2022 SUBJECTIVE: This is a 51-year-old woman who was admitted with cough and acute COVID-19, also had on suicidal precautions. Psychiatry is planning the patient to be transferred to inpatient psych. The chest x-ray was unremarkable. A CT angio has also been requested. There is no history of any fever, rigors, or chills. D-dimer is slightly elevated. OBJECTIVE: VITAL SIGNS: Pulse is 81, blood pressure 103/60, respirations 16. CHEST: Clear to auscultation. CARDIOVASCULAR: S1, S2. ABDOMEN: Soft. NERVOUS SYSTEM: No focal deficits. LABORATORY DATA: Noted. ASSESSMENT: 1. Depression and suicidal ideations. 2. Possible ETOH. 3. Acute COVID-19 infection. 4. Elevated D-dimer. 5. Degenerative joint disease. 6. Multiple medical issues. RECOMMENDATIONS: Recommend to continue current management and symptomatic treatment. Otherwise, at this time, I recommend CT angio of the chest and continue with conservative line of management. Once the patient is medically stable, could be transferred to inpatient psych. Infectious Disease also has been sought. Further recommendations to follow. MMODL / IJN: [id number] /
--- NOTE | 2022-08-30 13:19 | CT ---
CT CHEST FOR PULMONARY EMBOLISM. EXAMINATION TYPE: CT angio chest DATE OF EXAM: 08/30/2022 INDICATION: COVID + CT DLP: 259.5 mGycm, Automated exposure control for dose reduction was used. CONTRAST: Patient injected with 100 mL of Isovue 370. COMPARISON: TECHNIQUE: CT of the chest is performed on a spiral scan at 2 mm thick sections. Study is performed with intravenous contrast timed for evaluation for pulmonary embolism. This will limit additional po rtions of the evaluation. 3-D MIP images reconstructed by the technologist are reviewed on the compu ter in the coronal and sagittal planes. FINDINGS: No persistent filling defects are evident to suggest an acute pulmonary embolism. No mediastinal or hilar adenopathy enlarged by CT criteria is evident. The ascending aorta diameter at the level of the main pulmonary artery is 3.1 cm. The main pulmonary artery diameter at the bifur cation is 2.4 cm. Lung windows are clear. Limited CT section through the upper abdomen are unremarkable. IMPRESSIONS: 1. No acute pulmonary embolism.
[2022-08-30] MEDS ORDERED: diphenhydrAMINE ELIXIR 25 MG/10 ML CUP PO ONE (13:48)
[2022-08-30 14:02] VITALS: BP 115/77; PULSE 80; RESP 19; TEMP 98.1
[2022-08-30] MEDS ORDERED: VENLAFAXINE HCL ER 75 MG CAP PO SCH (14:13)
--- NOTE | 2022-08-30 14:27 | P.CN ---
Psychiatric Consult - . 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 REASON FOR REFERRAL: Psychiatry was consulted for suicidal ideations with a plan and has been petitioned and certified and is now covid positive. HISTORY OF PRESENT ILLNESS: The patient presented to the hospital on 08/28 for apparent "erratic behavior". Patient according to her report was brought in by police and was found drinking at home with a gun and was fighting over it according to petition. Patient also made some delusional comments. Her urine drug screen was positive for amphetamines. Blood alcohol level was negative. Patient was seen today laying in bed and was cooperative and calm during conversation. She was claiming of discomfort in her throat after coming back from the computed tomography scan. She states that she was not feeling depressed however is sad that she was not able to go home today. She claims that she has been taking her medications regularly and goes to her primary care physician to have them refilled. She states that she is taking Seroquel and Effexor and also taking Adderall as well. She claims that she is dealing with uterine prolapse issues. She states that "I found a gun in my house" and she states that she called the police to have it removed. She states that she remembers finding it in her son's possession. She states that she was drinking several drinks of a "vodka drink" at home before she called the police. She states that "I was never suicidal" and claims that she does not have any anxiety at this time. She was fairly future oriented and spoke about her life and her children. She states that her sleep has been fair appetite has been on and off. She is sonia to safety . He was agreeable to technical writer to call her son Bernard over the phone. At this time patient denies any suicidal or homical ideations, intent or plan. Patient denies any auditory, visual hallucinations and denies a ny paranoia or delusions. Patients admits to using alcohol however has been minimizing it. She states that she also uses cigarettes. Denies any other recreational drug use. Sign Manufacturer attempted to call patients [facility] over the phone at [phone]. claims that she has been drinking at home and the industrial electrical technician brought her into the hospital. He was fairly vague about the gun and circumstances. He states that she did not try to harm herself or mention anything about suicide. He claims that she found a gun that they have been hiding from her that they were using for hunting and he states that "she was thought very happy about it" Melony she called the police. He states that he feels comfortable having her back and the gun and any weapons have been removed from the house. We spoke about her follow-up and needing referral for outpatient psychiatric services. Questions were answered and addressed any concerns. PAST PSYCHIATRIC HISTORY: Patient has a a history of anxiety and depression along with ADHD. Patient is currently on Seroquel, Effexor and also Adderall. Patient denies any previous psychiatric hospitalizations. Patient denies any psychiatric outpatient follow-up however patient does follow up with her primary care physician for her medications. Patient denies any history of suicide attempts in the past. Past Medical History: Cancer, Musculoskeletal Disorder Additional Past Medical History / Comment(s): hx. skin cancer, back pain, back injury last spring History of Any Multi-Drug Resistant Organisms: None Reported Past Surgical History: Tonsillectomy Additional Past Surgical History / Comment(s): repair rectal prolapse, skin cancer removed face, colonoscopies Past Anesthesia/Blood Transfusion Reactions: No Reported Reaction Additional Past Anesthesia/Blood Transfusion Reaction / Comment(s): adopted-no family hx Past Psychological History: ADD/ADHD Past Alcohol Use History: Occasional Additional Past Alcohol Use History / Comment(s): on & off 1ppd since teens Past Drug Use History: None Reported ALLERGIES: as per EMR. CHEMICAL DEPENDENCY HISTORY: as per HPI. FAMILY PSYCHIATRIC/SUBSTANCE USE HISTORY: denies SOCIAL HISTORY: Patient was born and raised in [facility] [facility]. She states that she completed high school and also did some college. 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 She lives in a house with 3 sons. She claims that she is , denies any legal history. MENTAL STATUS EXAM: General Appearance: Patient appears to be thin, stated age is alert, pleasant, and attempts to be cooperative. Patient appears to have fair hygiene and grooming wearing hospital gown with fair eye contact. Behavior: Patient is calmly lying in bed without any agitated behavior. Speech: Patient's speech is fluent and nonpressured. Mood/Affect: Patient reports their mood is "ok", affect is congruent Suicidality/Homicidality: Patient denies having any suicidal or homicidal ideation intent or plan. Perceptions: Patient denies any visual hallucinations and denies any auditory hallucinations Though content/process: There is no evidence of any delusional thought content and thought process is linear and goal-directed. Future oriented. Memory and concentration: AOX3, grossly intact for the purposes of this session. Can spell "WORLD" backwards Judgment and insight: Fair IMPRESSIONS: Depressive disorder unspecified, rule out adjustment disorder Alcohol abuse and intoxication Nicotine dependence PLAN: -At this time patient DOES NOT meet criteria for inpatient psychiatric admission. -Would recommend the following medication changes/additions: Continue Seroquel under and 50 mg daily at bedtime as her home medication, Effexor 75 mg twice a day as her home medication and dose. Can continue with Adderall upon discharge as already prescribed. -tar worker to provide patient with outpatient mental health/psychiatry resources for appropriate follow up upon discharge -Sign Manufacturer spoke with patient about substance abuse and the harmful effects on medical and mental health, patient verbally understood and agreed. -tar worker to provide patient substance use treatment resources including AA/NA meetings in the community. -tar worker to provide patient with access line number to call for inpatient substance rehab -Communicated plan to patient's nurse. Sign Manufacturer also communicated plan and gathered further collateral history from patient's son Bernard, as noted in the HPI above. -Psychiatry will sign off at this time -Please contact with any questions. 08/30/22 14:13
[2022-08-30] MEDS ORDERED: QUEtiapine 100 MG TAB PO SCH (21:00)
--- NOTE | 2022-08-30 23:15 | DS ---
DISCHARGE SUMMARY FINAL DIAGNOSES: 1. Depression and suicidal ideations. 2. Possible ETOH. 3. Acute COVID-19 infection. 4. Elevated D-dimer. No evidence of pulmonary embolus. 5. Degenerative joint disease. 6. Hyperlipidemia. 7. Multiple medical issues. DISCHARGE DISPOSITION: The patient will be discharged in stable condition with guarded prognosis. Psychiatric cleared the patient for discharge. HISTORY OF PRESENT ILLNESS: This is a 51-year-old woman who was admitted with multiple medical problems as mentioned earlier, improved significantly. CTA was negative for pulmonary embolism. The patient is keen on going home. Psychiatrically, the patient will be discharged. To recommend follow up with Dr. Figueroa in Psych as an outpatient. Otherwise, resume the home medications. Zinc sulfate 1 daily and vitamin C 500 daily. Follow with primary doctor if there is any worsening of the symptoms Please also note, the cholesterol level was 225 and triglycerides 184, to be followed up in the outpatient setting. MMODL / IJN: [id number] /
--- NOTE | 2022-08-30 23:21 | P.CONS ---
History of Present Illness - Reason for Consult Consult date: 08/30/22 covid 19 Requesting physician: Rosalva Gan - Chief Complaint Not feeling well x few days - History of Present Illness Patient is a 51-year-old female who was brought into the ER 2 days ago for evaluation of erratic psychotic behavior patient actually called line for cement and did have several alcoholic beverages patient apparently was with a gun and was showing signs of perhaps homicidal or suicidal behavior for the patient has been brought into the ER patient on presentation to the hospital was afebrile and no fever have recorded subsequently patient is not hypoxic or need for supplemental oxygen patient did have a normal white count kidney function has been normal urine has been negative urine testing was positive for amphetamines patient did tested positive for COVID-19 patient did have a chest x-ray no acute cardiopulmonary process COPD changes patient did have a CT angiogram of the chest no acute acute pulmonary embolism did not mention any gr oundglass opacity infectious disease was consulted for positive COVID test and need for any treatment. Patient has been complaining of slight weakness and mild URI symptoms however the patient denies having any chest pain shortness of breath or cough. Denies any nausea no vomiting denies any abdominal pain and no diarrhea overall feeling better patient has received 1 dose of COVID-19 vaccine Review of Systems Positive point has been mentioned in the HPI rest of the systems are negative Past Medical History Past Medical History: Cancer, Musculoskeletal Disorder Additional Past Medical History / Comment(s): hx. skin cancer, back pain, back injury last spring, rectal prolapse, uterine prolapse History of Any Multi-Drug Resistant Organisms: None Reported Past Surgical History: Tonsillectomy Additional Past Surgical History / Comment(s): repair rectal prolapse, skin cancer removed face, colonoscopies Past Anesthesia/Blood Transfusion Reactions: No Reported Reaction Additional Past Anesthesia/Blood Transfusion Reaction / Comm: adopted-no family hx Past Psychological History: ADD/ADHD Smoking Status: Current every day smoker Past Alcohol Use History: Occasional Additional Past Alcohol Use History / Comment(s): on & off 1ppd since teens Past Drug Use History: None Reported - Past Family History Father Family Medical History: Cancer Medications and Allergies Home Medications Medication Instructions Recorded Confirmed Type Dextroamphetamine/Amphetamine 15 mg PO BID@0800,1300 09/04/17 08/29/22 History [Adderall] QUEtiapine [SEROquel] 150 mg PO HS 09/04/17 08/29/22 History Venlafaxine HCl ER [Effexor XR] 75 mg PO BID 09/04/17 08/29/22 History Cetirizine HCl 10 mg PO DAILY PRN 08/29/22 08/29/22 History Dextroamphetamine/Amphetamine 10 mg PO DAILY@1700 08/29/22 08/29/22 History [Adderall] EPINEPHrine (Auto Inject) [Epipen] 0.3 mg IM ONCE PRN 08/29/22 08/29/22 History Fluticasone Nasal [place] [Flonase 2 spr EA NOSTRIL DAILY 08/29/22 08/29/22 History Nasal [place]] Ascorbic Acid [Vitamin C] 1,000 mg PO DAILY #20 tab 08/30/22 Rx Zinc Sulfate [Orazinc] 220 mg PO DAILY #15 cap 08/30/22 Rx Allergies Allergy/AdvReac Type Severity Reaction Status Date / Time No Known Allergies Allergy Verified 08/29/22 09:35 Physical Exam Vitals: Vital Signs Temp Pulse Pulse Resp BP BP Pulse Ox 08/30/22 08:00 98.7 F 81 16 103/67 98 08/30/22 02:00 98 F 18 94 L 08/29/22 20:00 99 F 20 98 08/29/22 19:01 82 18 124/84 96 08/29/22 17:30 88 18 122/81 99 Intake and Output 08/29/22 08/30/22 08/30/22 22:59 06:59 14:59 Intake Total 0 0 Output Total 0 Balance 0 0 Intake: Other 0 0 Output: Urine 0 Other: Voiding Method Toilet # Voids 1 Weight 62.596 kg GENERAL DESCRIPTION: Middle-aged female lying in bed, no distress. No tachypnea or accessory muscle of respiration use. HEENT: Shows Pallor , no scleral icterus. Oral mucous membrane is dry. No pharyngeal erythema or thrush NECK: Trachea central, no thyromegaly. LUNGS: Unlabored breathing. Clear to auscultation anteriorly. No wheeze or crac kle. HEART: S1, S2, regular rate and rhythm. No loud murmur ABDOMEN: Soft, no tenderness , guarding or rigidity, no organomegaly EXTREMITIES: No edema of feet. SKIN: No rash, no masses palpable. NEUROLOGICAL: The patient is awake, alert, oriented x3, mood and affect normal. Results CBC & Chem 7: 08/30/22 06:28 08/30/22 06:28 Labs: Abnormal Lab Results - Last 24 Hours (Table) 08/29/22 08/30/22 08/30/22 Range/Units 17:53 06:28 06:28 RBC 4.05 L (4.10-5.20) X 10*6/uL D-Dimer 0.63 H (<0.60) mg/L FEU Triglycerides 184.00 H (0.00-149.00) mg/dL Cholesterol 225.00 H (0.00-200.00) mg/dL HDL Cholesterol 86.40 H (40.00-60.00) mg/dL Assessment and Plan (1) COVID-19 Status: Acute Code(s): U07.1 - COVID-19 SNOMED Code(s): 186116315 Plan: 1patient presented to hospital with erratic behavior and is currently being worked up for suicidal ideation with a sitter at the bedside patient also tested positive for COVID-19 however the patient do not have significant respiratory symptoms patient is currently not hypoxic or need for supplemental oxygen chest x-ray and CT angiogram did not show any pneumonia or PE treatment will be mostly supportive. 2patient will be advised zinc ascorbic acid and heparin. 3no need for steroids or remdesivir 4-droplet isolation x5 days We will follow on clinical condition and cultures to further adjust medication if needed Thank you for this consultation will follow this patient along with you Time with Patient: Greater than 30
[2022-08-31] MEDS ORDERED: ZINC SULFATE 220 MG CAP PO SCH (09:00)
[2022-08-31] MEDS ORDERED: ASCORBIC ACID 500 MG TAB PO SCH (09:00)
== END 2022-08-30 16:16 | disposition home or self-care (01) ==
LOC: EC 23:13 → 6NMEDSUR 08-29 16:48 → 4SSUR 08-29 17:49
PROVIDERS: ADMIT Hospitalist; ATTEND Hospitalist
DX: R45.851 Suicidal ideations (principal); F32.A Depression, unspecified; U07.1 COVID-19; F90.9 Attention-deficit hyperactivity disorder, unspecified type; F10.121 Alcohol abuse with intoxication delirium; Y90.0 Blood alcohol level of less than 20 mg/100 ml; F17.200 Nicotine dependence, unspecified, uncomplicated; M19.90 Unspecified osteoarthritis, unspecified site; F41.9 Anxiety disorder, unspecified; R79.89 Other specified abnormal findings of blood chemistry; E78.5 Hyperlipidemia, unspecified; Z85.828 Personal history of other malignant neoplasm of skin; Z79.899 Other long term (current) drug therapy; Z80.9 Family history of malignant neoplasm, unspecified
CPT/HCPCS: 96372 ×2; 82075; 99285; 36415; 85379; 80061; 80053 ×2; 80178; 84443; 85025 ×2; 81003; 81025; 80306; 83036; 87635; 71045; 71275; G0378 ×3; G0480; S4990 ×2; J2060; J1630; J1650; Q9967; 80320

== ENCOUNTER → 2024-09-18 | Outpatient (CLI) | payer OTHER ==
--- NOTE | 2024-09-19 17:50 | US ---
EXAMINATION TYPE: US pelvic complete DATE OF EXAM: 09/18/2024 COMPARISON: CLINICAL INDICATION: Female, 53 years old with history of N83.209 UNSPECIFIED OVARIAN CYST, UNSPECIFI ED SIDE; Irregular menses TECHNIQUE: Transvaginal (TV). Transabdominal grayscale sonographic images of the pelvis were acquired. FINDINGS: Date of LMP: 08/04/2024, EXAM MEASUREMENTS: Uterus: 8.8 x 6.7 x 4.8 cm Endometrial Stripe: 1.5 cm Right Ovary: 2.9 x 1.3 x 1.4 cm Left Ovary: 3.2 x 1.8 x 1.8 cm 1. Uterus: Anteverted wnl 2. Endometrium: Slightly thickened 3. Right Ovary: Follicle seen 4. Left Ovary: follicle seen 5. Bilateral Adnexa: wnl 6. Posterior cul-de-sac: trace fluid seen Urinary bladder is sonolucent. Posterior wall is normal. IMPRESSION: 1. Thickened endometrium at 1.5 cm. [facility], Workstation: [facility], 09/19/2024 5:48 PM
== END | disposition home or self-care (01) ==
LOC: RADUSWWP 10:49
PROVIDERS: ATTEND Family Medicine
DX: N83.209 Unspecified ovarian cyst, unspecified side (principal); N92.6 Irregular menstruation, unspecified; R93.89 Abnormal findings on diagnostic imaging of other specified body structures
CPT/HCPCS: 76856